=== PATIENT | male | born 1990 | race Caucasian/White ===

== ENCOUNTER 2020-07-16 21:28 | Emergency (ER) | payer SELFPAY ==
[~2020-07-16] VITALS: Ht 188 cm; Wt 87.6 kg
[2020-07-16 21:31] VITALS: BP 131/86
[2020-07-16] MEDS ORDERED: ACETAMINOPHEN 325 MG TABLET PO ONE (22:00)
[2020-07-16] MEDS ORDERED: ACETAMINOPHEN 325 MG TABLET ONE (22:13)
--- NOTE | 2020-07-16 22:23 | NUR ---
PT PICKING AT FEET, REQUESTING AILYN. MEDS PER MAR. PENDING XRAY
== END 2020-07-16 22:59 | disposition home or self-care (01) ==
LOC: ED 21:58
DX: J06.9 Acute upper respiratory infection, unspecified (principal); Z20.822 Contact with and (suspected) exposure to COVID-19; B34.9 Viral infection, unspecified; L03.116 Cellulitis of left lower limb; L03.115 Cellulitis of right lower limb; R50.9 Fever, unspecified; R51.9 Headache, unspecified; R06.02 Shortness of breath; R05 Cough; M79.10 Myalgia, unspecified site; R06.00 Dyspnea, unspecified; F17.210 Nicotine dependence, cigarettes, uncomplicated
CPT/HCPCS: 71045; 93005; 99285; 99406; U0003